=== PATIENT | female | born 1980 | race Caucasian/White ===

== ENCOUNTER → 2019-12-03 | Outpatient (CLI) | payer BC ==
[~2019-12-03] MED LIST: ACET325T9 PO; IBUP-1060 PO; IOHEXOL 180 MG/ML 10 ML VIAL. ONE; METH-38 PO; methylPREDNISolone ACETATE 40 MG/ML VIAL. ONE; methylPREDNISolone ACETATE 80 MG/ML VIAL. ONE
--- NOTE | 2019-12-03 13:07 | PAIN ---
DATE OF SERVICE: 12/03/2019 INITIAL CONSULTATION FOR PAIN CLINIC CHIEF COMPLAINT: Low back and right lower extremity pain. HISTORY OF PRESENT ILLNESS: This is a 39-year-old female who presents with history of pain in the low back, right lower extremity since about 09/2019. The patient reports no specific injury or action that she is aware of, just began getting worse in the low back and now radiating to the right lower leg, posterior gluteus, posterolateral thigh, lateral anterior thigh, anterior calf and posterior calf as well to the ankle. The patient reports has some tingling in the right foot, but it is beginning to get better with time. The patient reports otherwise worse with walking, standing, changing positions, difficult with sleeping, especially lying on her stomach, it awakens her from sleep at least 3 times or more each night, does not affect her bowel or bladder control, does affect her ability to walk. She is using a back brace as well as a cane in her left hand. The patient reports she has had physical therapy in the past. She is doing some exercises from that as well and had chiropractic treatment when actually feels made the pain worse and she is doing exercises from physical therapy previously at home. The patient has tried Robaxin, tramadol, Tylenol, ibuprofen. Tylenol and ibuprofen do decrease the pain to a moderate extent as does the Robaxin and tramadol did not and it give her muscle spasms when she took it. The patient rates her disability rating from 0-10, 10 being the worst, is a 6 with family home responsibilities, recreation, social activity, occupation and self-care, 4 with life support activities. The patient describes the pain as throbbing and shooting in the low back, right lower extremity with tingling and numbness in the foot, now getting better radiating to the leg with cramping, aching pain in the back itself. She did have a CT scan of the lumbar spine showing L4-L5 and L5-S1 disk and endplate degenerative changes with annular disk bulging at L4-L5 with moderate central canal stenosis, left foraminal disk bulging and mild narrowing of the anterior inferior portion of the left neural foramen, right foraminal disk bulging and endplate osteophyte showing mild narrowing in the anterior right neural foramen at L5-S1 shows mild right foraminal disk bulging and mild narrowing of the anterior inferior right neural foramen. The patient reports no loss of motor function of the lower extremity, but significant fatigability with walking, standing or changing positions, better with sitting, but only for a short period of time and she has to stand up and change positions and again awaken her from sleep frequently. PAST MEDICAL HISTORY: Significant for only cigarette smoking, continues to smoke and gastroesophageal reflux. PREVIOUS SURGERY: Include fractured leg in 1996 on the right and breast reduction in 1996. CURRENT MEDICATIONS: Include Tylenol, ibuprofen and Robaxin. ALLERGIES: THE PATIENT IS ALLERGIC TO HYDROCODONE, CODEINE AND TRAMADOL. FAMILY HISTORY: Significant for heart disease and asthma. SOCIAL HISTORY: The patient does not drink alcohol. Smokes about 1 pack or less cigarettes per day for the past 20 years. Denies any illegal, illicit or recreational drugs. She is single, lives locally in [place], [place] and is a consumer science teacher. REVIEW OF SYSTEMS: The patient's review of systems is positive for those items mentioned in history of present illness. All systems reviewed and otherwise negative. It is complete, full and well documented on the patient's chart. PHYSICAL EXAMINATION: VITAL SIGNS: The patient's blood pressure 137/87, pulse 76, respirations 18, temperature 98.2 degrees Fahrenheit, height is 5 feet 5 inches, weighs 187 pounds. GENERAL: The patient is awake, alert, oriented, appropriate, very pleasant demeanor. HEENT: Head shows normocephalic, atraumatic. Extraocular movements are intact and symmetrical. Oral cavity: Mucous membranes moist and pink. Dentition is intact. NECK: Shows anterior throat supple without palpable lymphadenopathy noted. Swallow reflex symmetrical. CHEST: Shows normal on inspection. Breath sounds are clear bilaterally. HEART: Shows S1, S2 clear. ABDOMEN: Soft, nontender, nondistended. BACK: Shows spine grossly in the midline, normal-appearing cervical lordotic curvature, thoracic kyphotic curvature and lumbar lordotic curvature. Lumbar paraspinous muscle shows symmetrical on inspection, with palpation shows some moderate tenderness throughout the upper, middle and lower distribution of paraspinous muscles bilaterally, but without specific atrophy, hypertrophy, no asymmetry, no trigger points, no radiation of pain. The patient shows some tenderness with rotational motion both laterally greater than 10 degrees right and left as well as extension greater than 10 degrees, forward flexion 45 degrees, all with significant pain in the base of the lumbar spine, but without radiation. No tenderness over the spinous processes or sacroiliac regions with direct palpation. EXTREMITIES: Lower extremities show deep tendon reflexes 2+ in the patellar, 1+ tendo-calcaneus tendons. Motor exam is strong with 5/5 dorsiflexion, extension, quadriceps and hamstring flexion and symmetrical. Peripheral pulses are 1+ posterior tibia. No peripheral edema is noted. Straight leg raise noted to be mildly positive on the right, but only about 45 degrees, decreased with knee flexion, left side is negative. Gaenslen's and Henry's maneuvers are negative bilaterally. Lower extremities are warm and dry to touch, equal in color and appearance. Peripheral pulses are 1+ posterior tibia. No peripheral edema is noted. The patient is able to stand, stand on her toes without significant difficulty or loss of balance. Again, the patient initially was wearing a back brace on presentation and this allows her to walk easier. She is using a cane in her left hand and does have that with her today as well. SKIN: The patient's skin shows warm and dry, good turgor. No edema. No sores, rashes or bruising throughout. IMPRESSION: 1. This is a 39-year-old female with approximate 2-month history of low back and right lower extremity pain in a radicular fashion. 2. CT scan of lumbar spine as noted. 3. Cigarette smoking. 4. Gastroesophageal reflux. PLAN: Options were discussed with the patient including conservative medical managements, physical therapies and interventional techniques. She would like to pursue interventional techniques. We discussed lumbar epidural steroid injection using description as well as anatomical models to describe the procedure. Risks were then discussed including, but not limited to bleeding, infection, possibility of epidural hematoma, subsequent neurological compromise, dural puncture, headaches, spinal cord and/or nerve damage, side effects of steroid medication and poor results regarding pain control. The patient understands and wished to proceed. The patient will return to clinic in approximately 2 weeks for followup. She was counseled on return appointment, activity level and side effects to be aware of. DIAGNOSES: Lumbar radiculopathy with lumbar degenerative disk disease. PROCEDURE: Lumbar epidural steroid injection, translaminar approach at L5-S1 level using C-arm fluoroscopic guidance under sterile prep and drape using local anesthetic. MEDICATION INJECTED: A total of 120 mg Depo-Medrol plus 10 mL of preservative-free normal saline and 2 mL of contrast. CONDITION AT DISCHARGE: Stable. The patient tolerated procedure well, had no complications. ORQUIDEA GARCIA MD DR: JOSEPH/roya JOB#: [id number] / [id number] CARLTON Romero MD
== END ==
LOC: PNCL 10:00
PROVIDERS: ATTEND Anesthesiology
DX: M51.16 Intervertebral disc disorders with radiculopathy, lumbar region (principal); F17.210 Nicotine dependence, cigarettes, uncomplicated; K21.9 Gastro-esophageal reflux disease without esophagitis; Z88.6 Allergy status to analgesic agent; Z88.5 Allergy status to narcotic agent
CPT/HCPCS: 62323; J1030; J1040; Q9965